=== PATIENT | male | born 1985 | race Caucasian/White ===

== ENCOUNTER 2016-09-02 09:17 | Emergency (ER) | payer OTHER, BC ==
[2016-09-02 09:28] VITALS: BP 137/89
[2016-09-02] MEDS ORDERED: Lidocaine 1% 10 ML MDV INJECT ONE (09:34)
--- NOTE | 2016-09-02 09:52 | EDM.PDOC ---
ED HPI GENERAL MEDICAL PROBLEM - General Chief Complaint: Trauma Stated Complaint: NOSE LAC Time Seen by Provider: 09/02/16 09:38 Source of Information: Reports: Patient History Limitations: Reports: No Limitations - History of Present Illness INITIAL COMMENTS - FREE TEXT/NARRATIVE: 31-year-old male works at [employer]. He reports he was pushing down on a spring on the frame of the vehicle below the trunk when it sprung back and struck him in the mid face. This resulted in a laceration between his eyes about 1.5 cm in a flap laceration to the bridge of his nose. His tetanus toxoid was last administered about 8 years ago. He denies any loss of consciousness or headache at this time. Certainly was dazed for a bit from the concussion of the spring. 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 [No Known Home Meds] 09/02/16 [History] ED ROS GENERAL - Review of Systems Review Of Systems: See Below Constitutional: Reports: No Symptoms HEENT: Reports: No Symptoms Respiratory: Reports: No Symptoms Cardiovascular: Reports: No Symptoms Endocrine: Reports: No Symptoms GI/Abdominal: Reports: No Symptoms : Reports: No Symptoms Musculoskeletal: Reports: No Symptoms Skin: Reports: No Symptoms Neurological: Reports: No Symptoms Psychiatric: Reports: No Symptoms Hematologic/Lymphatic: Reports: No Symptoms Immunologic: Reports: No Symptoms ED EXAM, SKIN/RASH Exam: See Below Exam Limited By: No Limitations General Appearance: Alert, WD/WN, No Apparent Distress Eye Exam: Bilateral Eye: Normal Inspection Nose: Other (Does have some bleeding from the anterior lateral aspect of his nose.) Throat/Mouth: Normal Inspection, Normal Lips, Normal Teeth, Normal Gums, Normal Oropharynx ( The septum is straight and without septal hematoma.) Head: Atraumatic, Normocephalic, Other (Laceration between the eyebrows but 1.5 cm. Flap laceration of 1 cm left midline of nose.) Neck: Normal Inspection, Supple, Non-Tender, Full Range of Motion. No: Lymphadenopathy (L), Lymphadenopathy (R) Respiratory/Chest: No Respiratory Distress, Lungs Clear, Normal Breath Sounds, No Accessory Muscle Use Cardiovascular: Normal Peripheral Pulses, Regular Rate, Rhythm, No Edema, No Murmur Peripheral Pulses: 3+: Posterior Tibial (L), Posterior Tibial (R), Dorsalis Pedis (L), Dorsalis Pedis (R) Back Exam: Normal Inspection, Full Range of Motion Extremities: Normal Inspection, Normal Range of Motion, Non-Tender, No Pedal Edema, Normal Capillary Refill Neurological: Alert, Oriented, CN II-XII Intact, Normal Cognition, Normal Gait, Normal Reflexes, No Motor/Sensory Deficits Psychiatric: Normal Affect, Normal Mood Skin: Warm, Dry, Intact, Normal Color Location, Skin: Face (Bridge of nose and tissue between the eyebrows.) ED SKIN PROCEDURES - Laceration/Wound Repair Middle Face Lac/Wound length In cm: 3.0 (two lacerations midface. First one 2 cm of bridge of nose just below the eyebrows in the midline. Linear laceration 2 cm in length sutured 4. Flap laceration mid nose requiring 3 sutures total length is 1 cm) Appearance: Subcutaneous, Clean Distal NVT: Neuro & Vascular Intact Anesthetic Type: Local Local Anesthesia - Lidocaine (Xylocaine): 1% Plain Local Anesthetic Volume: 4cc Closed with: Sutures Suture Size: other (5-0) # of Sutures: 7 Suture Type: Nylon, Interrupted, Running Course - Vital Signs Last Recorded V/S: Last Vital Signs Temp 36.8 C 09/02/16 09:22 Pulse 71 09/02/16 09:22 Resp 20 09/02/16 09:22 BP 137/89 09/02/16 09:22 Pulse Ox 99 09/02/16 09:22 - Orders/Labs/Meds Meds: Medications Discontinued Medications Generic Name Dose Route Start Last Admin Trade Name Dena PRN Reason Stop Dose Admin Lidocaine HCl 10 ml 09/02/16 09:34 09/02/16 09:42 Xylocaine 1% INJECT 09/02/16 09:35 10 ml ONETIME ONE Administration - Radiology Interpretation Free Text/Narrative:: 31-year-old male presents to the ED after being injured in the workplace. Reports he works for [employer]. He was pushing down any spring loaded arm under the trunk when it popped back and struck him in the midface. This resulted in a 1.5 cm laceration in the skin between his eyebrows and a small flap laceration of the midline of his nose. Will require suture repair. Tetanus toxoid is up-to-date. - Re-Assessments/Exams Free Text/Narrative Re-Assessment/Exam: 09/02/16 10:00: Both lacerations were cleansed and sutured under local anesthetic. 2 cm between the eyebrows are inferior to the eyebrows in the midline bridge of nose. Sutured 4 with 5-0 Ethilon. Flap laceration mid nose sutured 3. Length was 1 cm. He'll cleanse his wounds daily at home with soap and water after showering. Apply topical antibiotic such as bacitracin or Polysporin to the wounds once daily at bedtime .Sutures will need to be removed in 7 days time Departure - Departure Time of Disposition: 09:55 Disposition: Home, Self-Care 01 Condition: Fair Clinical Impression: Face lacerations Qualifiers: Encounter type: initial encounter Qualified Code(s): S01.81XA - Laceration without foreign body of other part of head, initial encounter - Discharge Information Instructions: Facial Laceration, [id number] Referrals: PCP,None [Primary Care Provider] - Forms: ED Department Discharge Additional Instructions: Evaluation in the emergency room this morning in regards to work related injury. Sounds like pushing down on leaf spring on a frame of a vehicle resulted in recoil with the spring striking you in the mid face. This resulted in a 1.5 cm laceration at the bridge of the nose between the eyebrows and a small flap laceration over the midline of the nose. Both of the wounds were cleansed and sutured under local anesthetic. 3 sutures are placed in the nose wound and 4 in the laceration between the eyebrows. These need to be attended to at home. Daily cleanse with soap and water. Showering is okay. Then apply topical antibiotic such bacitracin or Polysporin primarily at bedtime until the stitches are removed. Sutures need to be removed in 7 days time. May take Motrin 600 mg every 6 hours if needed for pain relief.
== END 2016-09-02 10:10 | disposition home or self-care (01) ==
LOC: JD.ED 09:17
DX: S01.21XA Laceration without foreign body of nose, initial encounter (principal); W22.8XXA Striking against or struck by other objects, initial encounter; Y92.69 Other specified industrial and construction area as the place of occurrence of the external cause; Y99.0 Civilian activity done for income or pay
CPT/HCPCS: 12011; 12013; 99282-25; 99283-25